=== PATIENT | female | born 1995 | race Caucasian/White ===

== ENCOUNTER → 2017-11-07 | Outpatient (CLI) | payer BC ==
[~2017-11-07] MED LIST: ALB6.7R INH; ALBU8.5H12 IH; AMPH15TA3 PO; CEFU500T10 PO; ETON1VAG7 VG; LORA-630 PO; METH18ERPT PO; NORG1TAB74 PO; OXYC-865 PO; PROP10TA58 PO; SERT-184 PO
== END ==
LOC: LAB 08:58
PROVIDERS: ATTEND Obstetrics & Gynecology
DX: Z11.3 Encounter for screening for infections with a predominantly sexual mode of transmission (principal); Z11.8 Encounter for screening for other infectious and parasitic diseases
CPT/HCPCS: 87491; 87591

== ENCOUNTER 2018-10-28 20:24 | Emergency (ER) | payer BC ==
[~2018-10-28 20:24] MED LIST changes: +Magic Mouthwash PO
[2018-10-28] MEDS ORDERED: NS(*) 0.9% 1000 ML BAG 1,000 ML IV ONE (20:59)
[2018-10-28] MEDS ORDERED: KETOROLAC 15 MG/ML VIAL IVP ONE (21:00)
--- NOTE | 2018-10-28 21:08 | ER Report ---
History and Physical Time Seen By MD: 21:00 Hx. of Stated Complaint: PT REPORTS LLQ PAIN THAT TRAVELS TO RLQ WITH PALPATION, STARTED 0900 TODAY. PT DENIES OTHER S/S HPI/ROS CHIEF COMPLAINT: Left upper quadrant abdominal pain. HISTORY OF PRESENT ILLNESS: Patient is a 23-year-old female with complaint of abdominal pain that began insidiously around 9 AM this morning to the left upper quadrant. The pain she describes as a pressure and does not have any radiation. She has some associated nausea with it. She currently states the pain is 5 out of 10 in intensity but it has been worse. She states that over the day the pain worsened. She reports a normal bowel movement this morning. She denies any dysuria. She denies any vaginal discharge or bleeding. Last menstrual period was at the beginning of this month. She denies anything makes the pain better or worse. Patient was initially seen at urgent care, she had a physical exam performed she was given what sounds like a GI cocktail for what was thought was a gastritis type pain and she was given Zofran for nausea. She was then sent over to the emergency department for further workup and evaluation. Patient denies having similar episodes in the past. She denies fevers or chills. She denies any chest pain or shortness of breath. She states that she has had no re cent travel history or antibiotic use. REVIEW OF SYSTEMS: Constitutional: No fever, no chills. Eyes: No discharge. ENT: No sore throat. Cardiovascular: No chest pain, no palpitations. Respiratory: No cough, no shortness of breath. Gastrointestinal: Upper quadrant abdominal pain. Genitourinary: No hematuria. Musculoskeletal: No back pain. Skin: No rashes. Neurological: No headache. Allergies: Coded Allergies: codeine (Verified Allergy, Intermediate, facial swelling, 10/28/18) Sulfa (Sulfonamide Antibiotics) (Unverified Allergy, Mild, RASH, OVERHEATING, 10/28/18) Home Meds Active Scripts Ondansetron Hcl (ZOFRAN) 4 Mg Tablet, 4 MG PO Q8H for Nausea, #15 TAB 0 Refills Prov:NIDA FISHER MD 10/28/18 Dicyclomine Hcl (DICYCLOMINE HCL) 20 Mg Tablet, 20 MG PO QID for abdominal pain, #20 TAB 0 Refills Prov:NIDA FISHER MD 10/28/18 [Magic Mouthwash] No Conflict Check, 5 ML PO Q4-6H PRN for PAIN, #100 ML 0 Refills Swish and swallow 5 mL by mouth every 4-6 hours as needed for mouth/throat pain. Prov:MAGI HART DNP, FLOOR CARE SPECIALIST-BC 07/09/18 Etonogestrel/Ethinyl Estradiol (NUVARING VAGINAL RING) 1 Each Vag.ring, 1 EACH VG Q4WK, #3 VAG.RING 4 Refills PV FOR 3 WEKS, REMOVE 1 WEEK Prov:RUBY LEAL MD 11/07/17 Albuterol Sulfate (PROVENTIL HFA) 6.7 Gm Inh, 1-2 PUFF INH 3-4XD PRN for WHEEZING for 30 Days, #1 INH 6 Refills Prov:RUBY LEAL MD 11/07/17 Reported Medications Sertraline Hcl (SERTRALINE HCL) 50 Mg Tablet, 1 TAB PO QDAY, TAB 11/07/17 Lorazepam (LORAZEPAM) 0.5 Mg Tablet, 0.5 MG PO Q4-6H 11/07/17 Propranolol Hcl (PROPRANOLOL HCL) 10 Mg Tablet, 10 MG PO BID 11/07/17 Discontinued Reported Medications Amphet Asp/Amphet/D-Amphet (ADDERALL 15 MG TABLET) 15 Mg Tablet, 15 MG PO 10/09/13 Methylphenidate Hcl (CONCERTA) 18 Mg Tab.er.24, 18 MG PO QAM 10/09/13 Discontinued Scripts Oxycodone Hcl/Acetaminophen (PERCOCET 5-325 MG TABLET) 1 Each Tablet, 1-2 EACH PO Q4-6H PRN for PAIN, #12 Prov:CORRINA ROSALES DO 12/26/16 Cefuroxime Axetil (CEFUROXIME) 500 Mg Tablet, 500 MG PO BID for infection, #14 TAB Prov:CORRINA ROSALES DO 12/26/16 Past Medical/Surgical History Past medical history for asthma, history of anxiety and depression, patient is a G0, Hx Smoking: No Smoking Status: Never Smoker Exposure to Second Hand Smoke?: No Constitutional Vital Sign - Last 24 Hours 10/28/18 10/28/18 10/28/18 10/28/18 20:30 20:32 21:00 21:05 Temp 98.2 Pulse 81 80 72 Resp 16 B/P (MAP) 130/89 130/89 (103) 132/78 (96) Pulse Ox 93 93 96 O2 Delivery Room Air 10/28/18 10/28/18 10/28/18 21:40 21:50 22:00 Pulse 87 B/P (MAP) 128/86 (100) 114/64 (81) Pulse Ox 94 Intake and Output 10/28/18 10/28/18 10/29/18 14:59 22:59 06:59 Intake Total 1000 ml Balance 1000 ml Physical Exam General Appearance: The patient is alert, has no immediate need for airway protection and no signs of toxicity. Eyes: Pupils equal and round no pallor or injection. Respiratory: There are no retractions, lungs are clear to auscultation. Cardiovascular: Regular rate and rhythm. Gastrointestinal: Abdomen is noted for some left upper quadrant tenderness without guarding or peritoneal signs Neurological: Awake and alert Skin: Warm and dry, no rashes. Musculoskeletal: Neck is supple non tender. Extremities are nontender, nonswollen and have full range of motion. Medical Decision Making Data Points Result Diagram: 10/28/18203410/28/182034 Laboratory Hematology Test 10/28/18 20:27 10/28/18 20:35 Urine Color Straw Urine Clarity Clear Urine pH 6.0 pH (4.8-9.5) Urine Specific [place] 1.013 Urine Protein Negative mg/dL (NEGATIVE) Urine Glucose (UA) Negative mg/dL (NEGATIVE) Urine Ketones Negative mg/dL (NEGATIVE) Urine Blood Negative (NEGATIVE) Urine Nitrite Negative (NEGATIVE) Urine Bilirubin Negative (NEGATIVE) Urine Urobilinogen Negative mg/dL (0.2-1.9) Urine Leukocyte Esterase Small (NEGATIVE) Urine RBC <1 /HPF (0-2/HPF) Urine WBC 1 /HPF (0-5/HPF) Urine Squamous Epithelial Cells Few /LPF (</=FEW) Urine Bacteria Negative /HPF (NONE-FEW) Urine Mucus None /HPF (NONE-FEW) Urine HCG, Qualitative Negative (NEGATIVE) Helicobacter pylori IgG Antibody Negative (NEGATIVE) Red Blood Count 4.60 M/uL (4.17-5.56) Mean Corpuscular Volume 88.3 fL (80.0-96.0) Mean Corpuscular Hemoglobin 29.3 pg (26.0-33.0) Mean Corpuscular Hemoglobin Concent 33.2 g/dL (32.0-36.0) Red Cell Distribution Width 12.3 % (11.5-14.5) Mean Platelet Volume 8.2 fL (7.2-11.1) Neutrophils (%) (Auto) 44.0 % (39.4-72.5) Lymphocytes (%) (Auto) 46.2 % (17.6-49.6) Monocytes (%) (Auto) 5.5 % (4.1-12.4) Eosinophils (%) (Auto) 3.3 % (0.4-6.7) Basophils (%) (Auto) 1.0 % (0.3-1.4) Nucleated RBC Relative Count (auto) 0.0 /100WBC Neutrophils # (Auto) 3.2 K/uL (2.0-7.4) Lymphocytes # (Auto) 3.3 K/uL (1.3-3.6) Monocytes # (Auto) 0.4 K/uL (0.3-1.0) Eosinophils # (Auto) 0.2 K/uL (0.0-0.5) Basophils # (Auto) 0.1 K/uL (0.0-0.1) Nucleated RBC Absolute Count (auto) 0.00 K/uL Sodium Level 140 mmol/L (137-145) Potassium Level 3.5 mmol/L (3.5-5.0) Chloride Level 106 mmol/L (98-107) Carbon Dioxide Level 24 mmol/L (22-31) Blood Urea Nitrogen 13 mg/dl (7-18) Creatinine 0.70 mg/dl (0.52-1.04) Glomerular Filtration Rate Calc > 60.0 Random Glucose 81 mg/dl (75-110) Calcium Level 9.7 mg/dl (8.4-10.2) Total Bilirubin 0.4 mg/dl (0.2-1.3) Aspartate Amino Transf (AST/SGOT) 29 U/L (0-35) Alanine Aminotransferase (ALT/SGPT) 17 U/L (0-56) Alkaline Phosphatase 66 U/L (0-126) Total Protein 7.5 g/dl (6.3-8.2) Albumin 4.1 g/dl (3.5-5.0) Lipase 215 U/L (23-300) Chemistry Test 10/28/18 20:27 10/28/18 20:35 Urine Color Straw Urine Clarity Clear Urine pH 6.0 pH (4.8-9.5) Urine Specific [place] 1.013 Urine Protein Negative mg/dL (NEGATIVE) Urine Glucose (UA) Negative mg/dL (NEGATIVE) Urine Ketones Negative mg/dL (NEGATIVE) Urine Blood Negative (NEGATIVE) Urine Nitrite Negative (NEGATIVE) Urine Bilirubin Negative (NEGATIVE) Urine Urobilinogen Negative mg/dL (0.2-1.9) Urine Leukocyte Esterase Small (NEGATIVE) Urine RBC <1 /HPF (0-2/HPF) Urine WBC 1 /HPF (0-5/HPF) Urine Squamous Epithelial Cells Few /LPF (</=FEW) Urine Bacteria Negative /HPF (NONE-FEW) Urine Mucus None /HPF (NONE-FEW) Urine HCG, Qualitative Negative (NEGATIVE) Helicobacter pylori IgG Antibody Negative (NEGATIVE) White Blood Count 7.3 k/uL (4.5-11.0) Red Blood Count 4.60 M/uL (4.17-5.56) Hemoglobin 13.5 g/dL (12.0-16.0) Hematocrit 40.6 % (34.0-47.0) Mean Corpuscular Volume 88.3 fL (80.0-96.0) Mean Corpuscular Hemoglobin 29.3 pg (26.0-33.0) Mean Corpuscular Hemoglobin Concent 33.2 g/dL (32.0-36.0) Red Cell Distribution Width 12.3 % (11.5-14.5) Platelet Count 294 K/uL (150-450) Mean Platelet Volume 8.2 fL (7.2-11.1) Neutrophils (%) (Auto) 44.0 % (39.4-72.5) Lymphocytes (%) (Auto) 46.2 % (17.6-49.6) Monocytes (%) (Auto) 5.5 % (4.1-12.4) Eosinophils (%) (Auto) 3.3 % (0.4-6.7) Basophils (%) (Auto) 1.0 % (0.3-1.4) Nucleated RBC Relative Count (auto) 0.0 /100WBC Neutrophils # (Auto) 3.2 K/uL (2.0-7.4) Lymphocytes # (Auto) 3.3 K/uL (1.3-3.6) Monocytes # (Auto) 0.4 K/uL (0.3-1.0) Eosinophils # (Auto) 0.2 K/uL (0.0-0.5) Basophils # (Auto) 0.1 K/uL (0.0-0.1) Nucleated RBC Absolute Count (auto) 0.00 K/uL Glomerular Filtration Rate Calc > 60.0 Calcium Level 9.7 mg/dl (8.4-10.2) Total Bilirubin 0.4 mg/dl (0.2-1.3) Aspartate Amino Transf (AST/SGOT) 29 U/L (0-35) Alanine Aminotransferase (ALT/SGPT) 17 U/L (0-56) Alkaline Phosphatase 66 U/L (0-126) Total Protein 7.5 g/dl (6.3-8.2) Albumin 4.1 g/dl (3.5-5.0) Lipase 215 U/L (23-300) Urinalysis Test 10/28/18 20:27 Urine Color Straw Urine Clarity Clear Urine pH 6.0 pH (4.8-9.5) Urine Specific [place] 1.013 Urine Protein Negative mg/dL (NEGATIVE) Urine Glucose (UA) Negative mg/dL (NEGATIVE) Urine Ketones Negative mg/dL (NEGATIVE) Urine Blood Negative (NEGATIVE) Urine Nitrite Negative (NEGATIVE) Urine Bilirubin Negative (NEGATIVE) Urine Urobilinogen Negative mg/dL (0.2-1.9) Urine Leukocyte Esterase Small (NEGATIVE) Urine RBC <1 /HPF (0-2/HPF) Urine WBC 1 /HPF (0-5/HPF) Urine Squamous Epithelial Cells Few /LPF (</=FEW) Urine Bacteria Negative /HPF (NONE-FEW) Urine Mucus None /HPF (NONE-FEW) Urine HCG, Qualitative Negative (NEGATIVE) EKG/Imaging Imaging CT scan of the abdomen and pelvis is unremarkable for acute findings ED Course/Re-evaluation ED Course 10/28/2018 9:59:12 pm bloodwork urinalysis pending CT A CT scan all unremarkable. The patient feeling somewhat improved although the pain is coming and going. I will send home with prescription for Zofran and Bentyl and have her follow-up with her primary care provider Decision to Disposition Date: Oct 28, 2018 Decision to Disposition Time: 21:59 Depart Departure Latest Vital Signs Vital Signs Date Time Temp Pulse Resp B/P (MAP) Pulse Ox O2 Delivery O2 Flow Rate FiO2 10/28/18 22:00 114/64 (81) 10/28/18 21:50 87 94 10/28/18 20:30 98.2 16 Room Air Impression: Primary Impression: Abdominal pain Condition: Improved Disposition: HOME OR SELF-CARE Referrals: RUBY LEAL MD (PCP) 2 Days if symptoms persist New Scripts Ondansetron Hcl (ZOFRAN) 4 Mg Tablet 4 MG PO Q8H for Nausea, #15 TAB 0 Refills Prov: NIDA FISHER MD 10/28/18 Dicyclomine Hcl (DICYCLOMINE HCL) 20 Mg Tablet 20 MG PO QID for abdominal pain, #20 TAB 0 Refills Prov: NIDA FISHER MD 10/28/18 Patient Instructions: Abdominal Pain (ED) Problem Qualifiers Primary Impression: Abdominal pain Abdominal location: left upper quadrant Qualified Codes: R10.12 - Left upper quadrant pain NIDA FISHER MD Oct 28, 2018 21:08
[2018-10-28] MEDS ORDERED: IOPAMIDOL 76% 150 ML INFUS BTL 150 ML ONE (21:14)
[2018-10-28 21:16] LABS: PLATELET COUNT, AUTOMATED 294 K/uL (150-450)
--- NOTE | 2018-10-28 21:53 | RADIOLOGY IMAGING REPORT ---
FACILITY: [facility] [place] PATIENT NAME: India Maza : 1995 MR: [id number] V: [id number] EXAM DATE: ORDERING PHYSICIAN: NIDA FISHER TECHNOLOGIST: Location: [facility] Patient: India Maza : 1995 Visit/Account:[id number] Date of Sevice: 10/28/2018 EXAMINATION: CT abdomen and pelvis with IV contrast HISTORY: Left upper quadrant pain. TECHNIQUE: Axial CT images of the abdomen and pelvis were obtained with IV contrast, with coronal a nd sagittal 2D reconstructed images. One of the following dose optimization techniques was utilized in the performance of this exam: Autom ated exposure control; adjustment of the mA and/or kV according to the patient's size; or use of an i terative reconstruction technique. Specific details can be referenced in the facility's radiology C T exam operational policy. Contrast: 75 mL of IV [id number]. COMPARISON: None. FINDINGS: Liver: Negative. Gallbladder and bile ducts: Negative. Spleen: Negative. Pancreas: Negative. Adrenal glands: Negative. Kidneys: Negative. No hydronephrosis or urinary calculi. Bowel and peritoneum: The small bowel and colon are normal in caliber, without evidence of obstructi on or any focal inflammatory process. No bowel wall thickening. Normal appendix. No free fluid or jole e intraperitoneal air. Pelvic structures: The uterus and adnexal structures are grossly unremarkable by CT. No large adn exal cyst in the pelvis. Contraceptive vaginal ring in place. Lymph node assessment: Negative. Vessels: Negative. Musculoskeletal: Negative. Body wall: Negative. Lung bases: Negative. IMPRESSION: No CT evidence of acute intra-abdominal pathology. No specific source of abdominal pain is identified . Report Dictated By: Mumtaz Bear MD at 10/28/2018 9:46 PM Report E-Signed By: Mumtaz Bear MD at 10/28/2018 9:49 PM WSN:[id number]
[2018-10-28 22:00] VITALS: BP 114/64
[2018-10-28] MEDS ORDERED: ONDA4TAB97 PO (22:01)
[2018-10-28] MEDS ORDERED: DICY20TA70 PO (22:01)
[2018-10-28] MEDS ORDERED: ONDANSETRON 4 MG ODT TH SL ONE (22:05)
[2018-10-28] MEDS ORDERED: DICYCLOMINE HCL 10 MG CAP PO ONE (22:05)
== END 2018-10-28 22:10 | disposition home or self-care (01) ==
LOC: ER 20:33
DX: R10.12 Left upper quadrant pain (principal); R10.31 Right lower quadrant pain
CPT/HCPCS: 74177; 81001; 81025; 83690; 85025; 86677; 96361; 96374; 99284; J1885; J7030; Q9967; S0119; 82040; 82247; 82310; 82374; 82435; 82565; 82947; 84075; 84132; 84155; 84295; 84450; 84460; 84520

== ENCOUNTER → 2018-12-23 | Outpatient (CLI) | payer BC ==
[~2018-12-23] MED LIST changes: +DICY20TA70 PO; +NITR-105 PO; +ONDA4TAB97 PO
== END ==
LOC: LAB 14:23
PROVIDERS: ATTEND Advanced Practice Midwife
DX: R35.0 Frequency of micturition (principal); B96.89 Other specified bacterial agents as the cause of diseases classified elsewhere
CPT/HCPCS: 87077; 87088; 87186